=== PATIENT | male | born 1945 | race Caucasian/White ===

== ENCOUNTER 2020-11-12 18:34 | Emergency (ER) | payer OTHER, MEDICARE ==
[2020-11-12] MEDS ORDERED: Heparin Sodium/0.45% NaCl 500 ML IV ONE (18:35)
[2020-11-12] MEDS ORDERED: Aspirin 81 MG Tab.Chew PO ONE (18:58)
[2020-11-12] MEDS ORDERED: Labetalol 20 MG/4 ML Syringe IVPUSH STA (18:58)
[2020-11-12] MEDS: Nitroglycerin 0.4 MG Tab.SL SL PRN ×2 (19:04→19:11)
[2020-11-12] MEDS: Sodium Chloride 0.9% 10 ML Syringe FLUSH PRN ×2 (19:10→19:13)
--- NOTE | 2020-11-12 20:01 | EDM.PDOC ---
ED HPI GENERAL MEDICAL PROBLEM - General Chief Complaint: Chest Pain Stated Complaint: CHEST PAIN Time Seen by Provider: 11/12/20 18:40 Source of Information: Reports: Patient, Family History Limitations: Reports: No Limitations - History of Present Illness INITIAL COMMENTS - FREE TEXT/NARRATIVE: Patient is a 75 YO WM who presented to the ED because of 1 month history chest pain, palpitation. nausea but no vomiting, dyspnea, headache. He was sen by his doctor last weee of October and a stress test showed mild blockage. Today the above symptoms got worse hence the ED visit. Chest Pain Score (Numeric/FACES): 5 - Related Data Allergies Allergy/AdvReac Type Severity Reaction Status Date / Time No Known Allergies Allergy Verified 11/12/20 18:50 Home Meds: Home Meds . [Unable to Verify Home Med List] 11/12/20 [History] Social & Family History - Tobacco Use Tobacco Use Status *Q: Never Tobacco User - Caffeine Use Caffeine Use: Reports: Coffee - Recreational Drug Use Recreational Drug Use: No ED ROS GENERAL - Review of Systems Review Of Systems: See Below Constitutional: Reports: Fatigue HEENT: Reports: No Symptoms Respiratory: Reports: Shortness of Breath Cardiovascular: Reports: Chest Pain, Lightheadedness Endocrine: Reports: No Symptoms GI/Abdominal: Reports: No Symptoms : Reports: No Symptoms Musculoskeletal: Reports: No Symptoms Skin: Reports: No Symptoms Neurological: Reports: No Symptoms Psychiatric: Reports: No Symptoms Hematologic/Lymphatic: Reports: No Symptoms ED EXAM, GENERAL - Physical Exam Exam: See Below Exam Limited By: No Limitations General Appearance: Alert, No Apparent Distress Eye Exam: Bilateral Eye: PERRL Ears: Normal External Exam, Normal Canal Nose: Normal Inspection, Normal Mucosa, No Blood Throat/Mouth: Normal Inspection, Normal Lips, Normal Teeth Head: Atraumatic, Normocephalic Neck: Normal Inspection, Supple, Non-Tender, Full Range of Motion Respiratory/Chest: No Respiratory Distress, Lungs Clear, Normal Breath Sounds, No Accessory Muscle Use, Chest Non-Tender Cardiovascular: Normal Peripheral Pulses, Regular Rate, Rhythm, No Edema GI/Abdominal: Normal Bowel Sounds, Soft, Non-Tender, No Organomegaly Back Exam: Normal Inspection, Full Range of Motion Course - Vital Signs Text/Narrative:: Lbs/EKG/CXR was reviewed and discussed with patient and his family ASA 324 mg PO x1 NTG 0.4 mg SL x1 Labetalol 20 mg IV x1 Heparin bolus 5000 U IV x1 Heparin drip @ 1000 U/hr Code Status: Full Code Case discussed with Dr. Allen Last Recorded V/S: Last Vital Signs Temp 36.8 C 11/12/20 18:34 Pulse 109 H 11/12/20 18:34 Resp 16 11/12/20 18:34 BP 148/93 H 11/12/20 19:11 Pulse Ox 98 11/12/20 18:34 - Orders/Labs/Meds Orders: Active Orders 24 hr Category Date Time Status EKG Documentation Completion [RC] ASDIRECTED Care 11/12/20 18:58 Active Chest 1V Frontal [CR] Stat Exams 11/12/20 18:56 Taken Heparin Sodium/0.45% NaCl [Heparin 25,000 Units in 1/2 Med 11/12/20 20:07 Active NS 500 ML] 500 ml IV ASDIRECTED Nitroglycerin [Nitrostat] Med 11/12/20 18:58 Active 0.4 mg SL Q5M PRN Sodium Chloride 0.9% [Saline Flush] Med 11/12/20 18:56 Active 10 ml FLUSH ASDIRECTED PRN Saline Lock Insert [OM.PC] Routine Oth 11/12/20 18:56 Ordered EKG 12 Lead [EK] Routine Ther 11/12/20 18:56 Ordered Medication Orders Heparin Sodium/Sodium Chloride (Heparin 25,000 Units In 1/2 Ns 500 Ml) 500 mls @ 20 mls/hr IV ASDIRECTED KARUNA Nitroglycerin (Nitroglycerin 0.4 Mg Tab.Sl) 0.4 mg SL Q5M PRN PRN Reason: Chest Pain Last Admin: 11/12/20 19:11 Dose: 0.4 mg Documented by: Admin: 11/12/20 19:04 Dose: 0.4 mg Documented by: BRET Sodium Chloride (Sodium Chloride 0.9% 10 Ml Syringe) 10 ml FLUSH ASDIRECTED PRN PRN Reason: Keep Vein Open Last Admin: 11/12/20 19:13 Dose: 10 ml Documented by: Admin: 11/12/20 19:10 Dose: 10 ml Documented by: BRET Labs: Laboratory Tests 11/12/20 11/12/20 11/12/20 Range/Units 18:55 18:55 18:55 WBC 6.6 (3.2-10.1) x10-3/uL RBC 4.48 (3.90-5.90) x10(6)uL Hgb 13.3 (12.9-17.7) g/dL Hct 40.4 (38.3-50.1) % MCV 90.1 (80.8-98.7) fL MCH 29.6 (27.0-33.3) pg MCHC 32.9 (28.7-35.3) g/dL RDW 14.4 (12.4-15.0) % Plt Count 215 (117-477) x10(3)uL MPV 9.1 (6.7-11.0) fL Neut % (Auto) 55.3 (40.3-71.8) % Lymph % (Auto) 32.1 (15.8-45.3) % [place] % (Auto) 8.2 (5.5-15.2) % Eos % (Auto) 3.5 (0.1-6.8) % Baso % (Auto) 0.9 (0.3-3.8) % Neut # (Auto) 3.7 (1.7-6.9) x10-3/uL Lymph # (Auto) 2.1 (0.5-4.5) x10-3/uL [place] # (Auto) 0.5 (0.0-1.2) x10-3/uL Eos # (Auto) 0.2 (0.0-0.6) x10-3/uL Baso # (Auto) 0.1 (0.0-0.3) x10-3/uL PT 10.3 (9.0-11.1) sec INR 0.95 L (1.00-1.24) APTT 26.5 (24.4-33.2) SECONDS Sodium 143 (135-145) mmol/L Potassium 3.8 (3.5-5.3) mmol/L Chloride 103 (100-110) mmol/L Carbon Dioxide 24 (21-32) mmol/L BUN 29 H (7-18) mg/dL Creatinine 1.7 H (0.70-1.30) mg/dL Est Cr Clr Drug Dosing 39.96 mL/min Estimated GFR (MDRD) 40 L (>60) BUN/Creatinine Ratio 17.1 (9-20) Glucose 357 H (80-116) mg/dL Calcium 8.5 L (8.6-10.2) mg/dL Total Bilirubin 0.4 (0.1-1.3) mg/dL AST 30 H (5-25) IU/L ALT 40 H (12-36) U/L Alkaline Phosphatase 98 (56-112) IU/L Troponin I (4.0-60.3) pg/mL Total Protein 7.5 (6.0-8.0) g/dL Albumin 3.6 (3.2-4.6) g/dL Globulin 3.9 g/dL Albumin/Globulin Ratio 0.9 /12/28 Range/Units 18:55 WBC (3.2-10.1) x10-3/uL RBC (3.90-5.90) x10(6)uL Hgb (12.9-17.7) g/dL Hct (38.3-50.1) % MCV (80.8-98.7) fL MCH (27.0-33.3) pg MCHC (28.7-35.3) g/dL RDW (12.4-15.0) % Plt Count (117-477) x10(3)uL MPV (6.7-11.0) fL Neut % (Auto) (40.3-71.8) % Lymph % (Auto) (15.8-45.3) % [place] % (Auto) (5.5-15.2) % Eos % (Auto) (0.1-6.8) % Baso % (Auto) (0.3-3.8) % Neut # (Auto) (1.7-6.9) x10-3/uL Lymph # (Auto) (0.5-4.5) x10-3/uL [place] # (Auto) (0.0-1.2) x10-3/uL Eos # (Auto) (0.0-0.6) x10-3/uL Baso # (Auto) (0.0-0.3) x10-3/uL PT (9.0-11.1) sec INR (1.00-1.24) APTT (24.4-33.2) SECONDS Sodium (135-145) mmol/L Potassium (3.5-5.3) mmol/L Chloride (100-110) mmol/L Carbon Dioxide (21-32) mmol/L BUN (7-18) mg/dL Creatinine (0.70-1.30) mg/dL Est Cr Clr Drug Dosing mL/min Estimated GFR (MDRD) (>60) BUN/Creatinine Ratio (9-20) Glucose (80-116) mg/dL Calcium (8.6-10.2) mg/dL Total Bilirubin (0.1-1.3) mg/dL AST (5-25) IU/L ALT (12-36) U/L Alkaline Phosphatase (56-112) IU/L Troponin I 445.2 H* (4.0-60.3) pg/mL Total Protein (6.0-8.0) g/dL Albumin (3.2-4.6) g/dL Globulin g/dL Albumin/Globulin Ratio Meds: Medications Generic Name Dose Route Start Last Admin Trade Name Freq PRN Reason Stop Dose Admin Heparin Sodium/Sodium Chloride 500 mls @ 20 mls/hr 11/12/20 20:07 Heparin 25,000 Units In 1/2 Ns 500 Ml IV ASDIRECTED KARUNA Nitroglycerin 0.4 mg 11/12/20 18:58 11/12/20 19:11 Nitroglycerin 0.4 Mg Tab.Sl SL 0.4 mg Q5M PRN Administration Chest Pain Sodium Chloride 10 ml 11/12/20 18:56 11/12/20 19:13 Sodium Chloride 0.9% 10 Ml Syringe FLUSH 10 ml ASDIRECTED PRN Administration Keep Vein Open Discontinued Medications Generic Name Dose Route Start Last Admin Trade Name [place] PRN Reason Stop Dose Admin Aspirin 243 mg 11/12/20 18:58 11/12/20 19:01 Aspirin 81 Mg Tab.Chew PO 11/12/20 18:59 243 mg ONETIME ONE Administration Heparin Sodium (Porcine) 5,000 units 11/12/20 20:06 Heparin Sodium 5,000 Units/Ml Vial IVPUSH 11/12/20 20:07 NOW STA Labetalol HCl 20 mg 11/12/20 18:58 11/12/20 19:04 Labetalol 20 Mg/4 Ml Syringe IVPUSH 11/12/20 18:59 20 mg NOW STA Administration Protocol Departure - Departure Time of Disposition: 20:05 Disposition: DC/Tfer to Acute Hospital 02 Reason for Transfer *Q: Other (NSTEMI) Condition: Good Clinical Impression: Chest pain, NSTEMI (non-ST elevated myocardial infarction), Hypertensive crisis Referrals: Kamron Mo MD [Primary Care Provider] - Forms: ED Department Discharge Sepsis Event Note (ED) - Evaluation Sepsis Screening Result: No Definite Risk - Focused Exam Vital Signs: Vital Signs Temp Pulse Resp BP BP Pulse Ox 11/12/20 19:11 148/93 H 11/12/20 19:04 194/114 H 11/12/20 18:34 36.8 C 109 H 16 206/109 H 98 - My Orders Last 24 Hours: My Active Orders 11/12/20 18:56 Chest 1V Frontal [CR] Stat Sodium Chloride 0.9% [Saline Flush] 10 ml FLUSH ASDIRECTED PRN Saline Lock Insert [OM.PC] Routine EKG 12 Lead [EK] Routine 11/12/20 18:58 EKG Documentation Completion [RC] ASDIRECTED Nitroglycerin [Nitrostat] 0.4 mg SL Q5M PRN 11/12/20 20:07 Heparin Sodium/0.45% NaCl [Heparin 25,000 Units in 1/2 NS 500 ML] 500 ml IV ASDIRECTED - Assessment/Plan Last 24 Hours: My Active Orders 11/12/20 18:56 Chest 1V Frontal [CR] Stat Sodium Chloride 0.9% [Saline Flush] 10 ml FLUSH ASDIRECTED PRN Saline Lock Insert [OM.PC] Routine EKG 12 Lead [EK] Routine 11/12/20 18:58 EKG Documentation Completion [RC] ASDIRECTED Nitroglycerin [Nitrostat] 0.4 mg SL Q5M PRN 11/12/20 20:07 Heparin Sodium/0.45% NaCl [Heparin 25,000 Units in 1/2 NS 500 ML] 500 ml IV ASDIRECTED
[2020-11-12] MEDS ORDERED: Heparin Sodium 5,000 Units/ML Vial IVPUSH STA (20:06)
[2020-11-12] MEDS ORDERED: Heparin Sodium/0.45% NaCl 500 ML IV SCH (20:07)
--- NOTE | 2020-11-13 13:33 | PCM.EKG ---
#1 Interpretation EKG Date: 11/12/20 Time: 18:35 Rhythm: NSR Rate (Beats/Min): 111 [place]: Normal P-Wave: Present QRS: Normal ST-T: Normal QT: Normal (NSR No acute changes)
--- NOTE | 2020-11-13 17:07 | CR ---
INDICATION: Chest pain. CHEST ONE VIEW: AP portable upright view of the chest was obtained 11/12/20 - no comparison. The heart did not appear grossly enlarged allowing for the AP positioning and poor inspiration. The aorta is slightly tortuous. Overlying EKG leads are noted. Heavy markings at the lung bases are emphasized by the poor inspiration making it difficult to exclude areas of minimal patchy bronchopneumonia, especially at the right lung base. However, no consolidating pneumonia or effusion was seen. Exogenous obesity is noted. IMPRESSION: 1. No definite acute process, but difficult to exclude patchy bronchopneumonia at the lung bases. 2. ASD aorta - heart size difficult to evaluate due to the poor inspiration and AP positioning. 3. Exogenous obesity. MTDD
== END 2020-11-12 20:50 ==
LOC: FB.ED 18:34
DX: I21.4 Non-ST elevation (NSTEMI) myocardial infarction (principal); I16.9 Hypertensive crisis, unspecified
CPT/HCPCS: 36415; 71045; 80053; 84484; 85025; 85610; 85730; 93005; 93010; 96365; 96375; 99284; 99285-25; A9270-GY; J1644; J3490